=== PATIENT | female | born 1955 | race Caucasian/White ===

== ENCOUNTER 2021-04-12 09:31 | Inpatient (IN) | payer OTHER ==
[~2021-04-12] VITALS: Ht 162.6 cm; Wt 131.0 kg
--- NOTE | ~2021-04-12 | EMS ---
[address] [address] EMS Patient Care Report Name: FARRAH SUAREZ Room #: 202-P ADM IN M.R.#: [id number] Admission: 04/12/21 Attend Phys: Taqueria Elizabeth MD Discharge: Date of : 59 Report #: [id number] THIS REPORT FOR: //name// Report Transmitted: 04/16/2021 13:06 EMS Care Summary [place], [place]/[facility] Incident [id number] @ 04/12/2021 08:46 Incident Location [address] [place] [address] Patient FARRAH SUAREZ Female, 65 Years 1955 Patient Address [address] [place] [address] Patient History Cardiac Arrythmia,Diabetes, Patient Allergies Penicillin allergy, Patient Medications Losartan, Diltiazem, Amiodarone, Chief Complaint WEAKNESS Disposition Transported No Lights/[place] Dispatch Reason Sick Person Transported To [facility] Narrative PT FOUND SITTING ON TOILET IN BATHROOM OF HER HOME. P28 ON SCENE. PTS ON SCENE STATES THAT FOR 3 DAYS PT HAS HAD FEVER, WEAKNESS, INTERMITTENT CONFUSION AND TROUBLE BREATHING. PTS STATES THAT PT TYPICALLY DOES NOT HAVE ANY OF THESE COMPLAINTS. ON EMS ARRIVAL PT STATES THAT SHE MADE IT TO THE [address] [address] EMS Patient Care Report Name: FARRAH SUAREZ Room #: 202-P ADM IN M.Fátima.#: [id number] Admission: 04/12/21 Attend Phys: Taqueria Elizabeth MD Discharge: Date of : 59 Report #: [id number] BATHROOM BUT CANNOT GET UP OFF THE TOILET ON HER OWN. PT ASSISTED FROM TOILET TO MEGAMOVER AND CARRIED TO STRETCHER. PT IS LETHARGIC BUT ABLE TO ANSWER ALL QUESTIONS APPROPRIATELY. PT HAS NO VISIBLE TRAUMA. PT HAS NO COMPLAINTS OF PAIN, SOB, CP OR TRAUMA. NO ADDITIONAL CHANGES NOTED ENROUTE. Initial Vitals @09:13Glucose: 383, @09:08CO: 0,SpO2: 84, @09:14P: 89,R: 18,BP: 106/58,Pain: 0/10,GCS: 15,CO: 7,SpO2: 92,Revised Trauma: 12, @09:08P: 91,R: 18,BP: 114/84,Pain: 0/10,GCS: 15,SpO2: 84,Revised Trauma: 12, Assessments @08:53MENTAL:No Abnormalities,SKIN:Hot,Diaphoresis,HEENT:Head/Face: No Abnormalities,LUNG SOUNDS:General: No Abnormalities,ABDOMEN:General: No Abnormalities,PELVIS//GI:Incontinence,EXTREMITIES:PULSE:NEURO:No Abnormalities, Impression Generalized Weakness Procedures @08:53 ALS Assessment Response: UnchangedSucceeded @09:07 3-Lead ECG Response: UnchangedSucceeded @09:05 Stretcher Response: Unchanged @09:04 General Comments Response: Unchanged @09:09 IV Therapy - Saline Lock 0cc (20 ga) Site: Hand-Left Response: UnchangedFailed @09:12 IV Therapy - Saline Lock 0cc (20 ga) Site: Hand-Left Response: UnchangedSucceeded Timeline 08:42,Call Received 08:42,Dispatch Notified 08:46,Dispatched 08:48,En Route 08:51,On Scene 08:53,At Patient 08:53,ALS Assessment,Response: UnchangedSucceeded, 09:04,General Comments,Response: Unchanged 09:05,Stretcher,Response: Unchanged 09:07,3-Lead ECG,Response: UnchangedSucceeded, 09:08,BP: 114/84 M,PULSE: 91,RR: 18 R,SPO2: 84 Ox,ETCO2: ,BG: ,PAIN: 0,GCS: 15, 09:08,BP: / M,PULSE: ,RR: R,SPO2: 84 Ox,ETCO2: ,BG: ,PAIN: ,GCS: , 09:09,IV Therapy - Saline Lock 0cc 20 ga Site: Hand-Left,Response: [address] [address] EMS Patient Care Report Name: FARRAH SUAREZ Room #: 202-P [facility] IN M.R.#: [id number] Admission: 04/12/21 Attend Phys: Taqueria Elizabeth MD Discharge: Date of : 59 Report #: [id number] UnchangedFailed, 09:12,IV Therapy - Saline Lock 0cc 20 ga Site: Hand-Left,Response: UnchangedSucceeded, 09:13,BP: / M,PULSE: ,RR: R,SPO2: Ox,ETCO2: ,B,PAIN: ,GCS: , 09:14,BP: 106/58 M,PULSE: 89,RR: 18 R,SPO2: 92 Ox,ETCO2: ,BG: ,PAIN: 0,GCS: 15, 09:19,Depart Scene 09:27,At Destination 09:38,Call Closed Disclaimer v1.1 Copyright 2021 [employer] This EMS Care Summary contains data elements from the applicable legal record (which may be displayed differently). It is designed to provide pertinent information for the following purposes: continuity of care, clinical quality, and state data reporting. The complete legal record is available to ED staff and administrators of the receiving hospital in [facility] Patient Tracker. All data is provided "as is."
[2021-04-12 09:32] VITALS: BP 95/21
[2021-04-12 09:57] LABS: HEMOGLOBIN 10.7 gm/dL (12.0-15.0); LYMPHOCYTES 1.5 % (24.0-44.0); WBC 10.5 thou/uL (4.0-11.0)
[2021-04-12 09:58] LABS: ABSOLUTE NEUTROPHILS 9.9 thou/uL (1.4-8.2); BASOPHILS 0.2 % (0.0-2.0); EOSINOPHILS 0.1 % (0.0-3.0); HEMATOCRIT 32.4 % (37.0-47.0); MCH 27.6 pg (26.0-34.0); MCV 83.5 fL (80.0-100.0); MONOCYTES 3.6 % (1.0-8.0); PLATELET COUNT 137 thou/uL (150-400); POLYS 94.6 % (36.0-66.0); RBC 3.88 mil/uL (4.20-5.00); RDW 18.9 % (10.5-14.5)
[2021-04-12 09:59] LABS: CALCIUM 9.1 mg/dL (8.5-10.1); CREATININE 1.7 mg/dL (0.6-1.0)
[2021-04-12 10:00] LABS: POTASSIUM 4.9 mmol/L (3.5-5.1)
[2021-04-12 10:09] LABS: ALBUMIN 2.8 g/dL (3.4-5.0); TOTAL BILIRUBIN 1.1 mg/dL (0.2-1.0); TOTAL PROTEIN 7.3 g/dL (6.4-8.2)
[2021-04-12] MEDS ORDERED: LOSARTAN POTASS50 MG PO (10:35)
[2021-04-12] MEDS ORDERED: FUROSEMIDE 80 M80 M1 PO (10:35)
[2021-04-12] MEDS ORDERED: PACERONE 200 M200 M1 PO (10:35)
[2021-04-12] MEDS ORDERED: XARELTO20 MG PO (10:35)
[2021-04-12] MEDS ORDERED: GLYBURIDE 2.52.5 M1 PO (10:36)
[2021-04-12] MEDS ORDERED: DILTIAZEM 24HR240 M1 PO (10:36)
[2021-04-12] MEDS ORDERED: METFORMIN HCL1000 MG PO (10:36)
[2021-04-12 12:15] VITALS: BP 127/65
[2021-04-12 13:22] LABS: URINE BILIRUBIN NEGATIVE (Negative); URINE BLOOD NEGATIVE (Negative); URINE CLARITY CLEAR; URINE COLOR YELLOW; URINE GLUCOSE-RANDOM* NEGATIVE (Negative); URINE KETONES NEGATIVE (Negative); URINE LEUKOCYTES-REFLEX TRACE (Negative); URINE NITRITE-REFLEX NEGATIVE (Negative); URINE PROTEIN (DIPSTICK) 1+ (Negative); URINE SPECIFIC GRAVITY 1.025 (1.005-1.035); URINE UROBILINOGEN 0.2 E.U./dl (0.2-1.0)
[2021-04-12 13:32] LABS: SQUAMOUS >10 Many /LPF (0-3); URINE RBC 3-10 Few /HPF (NONE SEEN)
[2021-04-12 13:33] LABS: BACTERIA-REFLEX >30 Many /HPF (None Seen); URINE WBC-REFLEX 6-15 Few /HPF (0-5)
[2021-04-12 13:34] LABS: AMORPHOUS URATES Many /LPF (None Seen); FINE GRANULAR CASTS 0-3 Few /LPF (None Seen); HYALINE CASTS 0-3 Few /LPF (None Seen)
[2021-04-12 13:47] LABS: ANISOCYTOSIS 1+; PLATELET ESTIMATE NORMAL
--- NOTE | 2021-04-12 14:27 | EKG ---
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
[2021-04-12 16:00] VITALS: BP 116/53
[2021-04-12 20:56] VITALS: BP 99/64
[2021-04-13] VITALS (8 sets, daily range): BP systolic 105–119; BP diastolic 57–67
[2021-04-13 04:16] LABS: ABSOLUTE NEUTROPHILS 7.6 thou/uL (1.4-8.2); BASOPHILS 0.3 % (0.0-2.0); HEMATOCRIT 31.2 % (37.0-47.0); HEMOGLOBIN 10.4 gm/dL (12.0-15.0); MCH 27.6 pg (26.0-34.0); MCHC 33.2 g/dL (28.0-37.0); MCV 83.3 fL (80.0-100.0); MONOCYTES 10.1 % (1.0-8.0); PLATELET COUNT 99 thou/uL (150-400); POLYS 84.6 % (36.0-66.0); RBC 3.75 mil/uL (4.20-5.00); RDW 18.8 % (10.5-14.5)
[2021-04-13 05:05] LABS: ALBUMIN 2.6 g/dL (3.4-5.0); CALCIUM 8.7 mg/dL (8.5-10.1); CREATININE 1.9 mg/dL (0.6-1.0); MAGNESIUM 2.2 mg/dL (1.8-2.4); POTASSIUM 4.6 mmol/L (3.5-5.1); TOTAL BILIRUBIN 1.3 mg/dL (0.2-1.0); TOTAL PROTEIN 7.2 g/dL (6.4-8.2)
[2021-04-13 10:23] LABS: HCO3 22.1 mmol/L (22.0-26.0); PCO2 35.5 mmHg (35.0-45.0); PO2 81.4 mmHg (80.0-100.0); pH 7.413 (7.360-7.450); sO2 96.2 % (92.0-98.0)
--- NOTE | 2021-04-13 12:43 | 2DMMODE ---
[facility] [place] [address] 2 D/M-MODE ECHOCARDIOGRAM Name: FARRAH SUAREZ Room #: 202-P ADM IN M.R.#: [id number] Admission: 04/12/21 Attend Phys: Taqueria Elizabeth MD Discharge: Date of : 59 Report #: [id number] THIS REPORT FOR: cc: Bharat Burton MD, Neal A. MD Santiago, Patrick MD [facility] ~ APPROVED REPORT Study performed: 04/13/2021 11:00:27 EXAM: Comprehensive 2D, Doppler, and color-flow Echocardiogram Patient Location: In-Patient Room #: 202 Status: routine BSA: 2.25 HR: 85 bpm BP: 119/63 mmHg Rhythm: NSR Other Information Study Quality: Adequate Technically limited study due to body habitus, inability to position patient. Risk Factors: Cardiac Risk Factors: HTN Indications Congestive Heart Failure Diabetes Dyspnea Hypertension/HDD 2D Dimensions IVSd: 16.85 (7-11mm) LVOT Diam: 20.80 (18-24mm) LVDd: 52.73 mm PWd: 12.21 (7-11mm) Ascending Ao: 31.49 (22-36mm) LVDs: 40.08 (25-40mm) Left Atrium: 43.35 (27-40mm) Aortic Root: 25.94 mm Volumes Left Atrial Volume (Systole) Single Plane 4CH: 92.77 mL Single Plane 2CH: 82.66 mL [facility] [address] [place] [address] 2 D/M-MODE ECHOCARDIOGRAM Name: FARRAH SUAREZ Room #: 202-P ADM IN M.R.#: [id number] Admission: 04/12/21 Attend Phys: Taqueria Elizabeth MD Discharge: Date of : 59 Report #: [id number] Biplane LA Volume: 78.00 mL LA ESV Index: 35.00 mL/m2 Aortic Valve AoV Peak Octavio.: 3.17 m/s AO Peak Gr.: 40.17 mmHg LVOT Max P.80 mmHg AO Mean Gr.: 28.50 mmHg LVOT Mean P.13 mmHg AO V2 Mean: 2.58 m/s LVOT Max V: 1.48 m/s AO V2 VTI: 67.90 cm LVOT Mean V: 1.05 m/s TONE (VTI): 1.87 cm2 LVOT V1 VTI: 37.41 cm TONE Vmax: 1.59 cm2 AI Vmax: 3.73 m/s SV (LVOT): 127.09 mL AI Stearns: 2.81 m/s2 AI PHT: 385.58 ms Mitral Valve MV Peak Gr.: 14.98 mmHg MV Mean Gr.: 7.79 mmHg MV Max Octavio.: 1.93 m/s MV Mean Octavio.: 1.32 m/s MV VTI: 541.37 mm MVA VTI: 234.76 mm2 Pulmonary Valve PV Peak Octavio.: 1.35 m/s PV Peak Gr.: 7.24 mmHg AK End Vmax: 1.43 m/s Tricuspid Valve TR Peak Octavio.: 3.73 m/s RAP Estimate: 7.00 mmHg TR Peak Gr.: 55.55 mmHg RVSP: 62.00 mmHg Left Ventricle The left ventricle is normal size. There is normal LV segmental wall motion. Moderate concentric left ventricular hypertrophy. Left ventricular systolic function is borderline. LVEF is 50-55%. Transmitral Doppler flow pattern suggests impaired LV relaxation. Right Ventricle The right ventricle is normal size. The right ventricular systolic function is normal. Atria Left atrium is dilated. A pacemaker is seen in the right atrium consistent with history. Aortic Valve [facility] [address] [place] [address] 2 D/M-MODE ECHOCARDIOGRAM Name: FARRAH SUAREZ Room #: 202-P [facility] IN .R.#: [id number] Admission: 04/12/21 Attend Phys: Taqueria Elizabeth MD Discharge: Date of : 59 Report #: [id number] The aortic valve is normal in structure. Mild aortic regurgitation. Mild aortic stenosis. Highest mean aortic valve gradient is _28.5___mmHg. Calculated TONE by the continuity equation is _1.6___cm2. Mitral Valve Mitral valve leaflets are severely thickened. There is no mitral valve regurgitation noted. No evidence of mitral valve stenosis. Tricuspid Valve The tricuspid valve is normal in structure. Severe tricuspid regurgitation. PAP 62 mmHg Pulmonic Valve The pulmonary valve is normal in structure. There is no pulmonic valvular regurgitation. Great Vessels The aortic root is normal in size. IVC is normal in size and collapses >50% with inspiration. Pericardium There is no pericardial effusion. <Conclusion> Normal left ventricle size with moderate concentric hypertrophy Ejection fraction 50-55% Normal right ventricle size/function Pacer wire detected in the right ventricle Moderate left atrial enlargement Mild aortic valve calcification Mild aortic valve stenosis aortic valve area estimated 1.6 cm Aortic valve mean gradient of 28 mmHg Moderate mitral annular calcification, posterior leaflet appears to be fixed Moderately thickened mitral valve without stenosis Moderate to severe tricuspid valve insufficiency Pulmonary systolic pressure estimated at 62 mmHg No pericardial effusion normal <ELECTRONICALLY SIGNED> By: Brock Levi MD, FACC 04/13/21 1243 1243 1243 Brock Levi MD, FACC /INF
--- NOTE | 2021-04-13 17:35 | HC ---
[facility] [place] [address] CONSULTATION Name: FARRAH SUAREZ Room #: 202-P ADM IN M.R.#: [id number] Admission: 04/12/21 Attend Phys: Taqueria Elizabeth MD Discharge: Date of : 59 Report #: [id number] THIS REPORT FOR: cc: Bharat Burton MD, Neal A. MD Geha,Agusto Cabrera MD ~ DATE OF SERVICE: 04/12/2021 INFECTIOUS DISEASE CONSULTATION REASON FOR CONSULTATION: I was asked to evaluate concerning sepsis and bacteremia. HISTORY OF PRESENT ILLNESS: The patient is a 65-year-old with underlying history of diabetes, hypertension, congestive heart failure, presents with a 3-day history of progressive weakness, nonproductive cough, shortness of breath, fever up to 102 degrees. Nausea with minimal emesis. No abdominal pain or diarrhea. Denies any dysuria, back or flank pain. She has been COVID vaccinated. No influenza vaccine. Recently moved from [place]. She does have a history of congestive heart failure, sick sinus syndrome, permanent pacemaker and obstructive sleep apnea. REVIEW OF SYSTEMS: A 14-point review of system was negative other than what has been described above. The patient, in the Emergency Room, was given IV fluids. Also, given Lasix when she was found to be in congestive heart failure. She is on 5 liters of oxygen per nasal cannula. ALLERGIES: PENICILLIN, TETRACYCLINE. MEDICATIONS: As noted on her MAY, now on vancomycin, azithromycin and meropenem. She was also given levofloxacin. PAST MEDICAL HISTORY: Hypertension, diabetes, obstructive sleep apnea, iron deficiency anemia, paroxysmal atrial fibrillation, sick sinus syndrome, mitral valve dysfunction, diastolic congestive heart failure, permanent pacemaker, obesity. FAMILY HISTORY: No report of tuberculosis. SOCIAL HISTORY: Nonsmoker. No significant alcohol intake. PHYSICAL EXAMINATION: VITAL SIGNS: She was afebrile. Blood pressure 99/64, heart rate 90, respiratory rate 21 on 5 liters of oxygen per nasal cannula. GENERAL: Obese. She was very weak, lethargic, had a difficult time speaking and then would drift off to sleep. [facility] [address] [place] [address] CONSULTATION Name: FARRAH SUAREZ Room #: 202-P [facility] IN M.R.#: [id number] Admission: 04/12/21 Attend Phys: Taqueria Elizabeth MD Discharge: Date of : 59 Report #: [id number] SKIN: With intertrigo of the groin. No other lesions or decubiti. No palpable adenopathy. HEENT: Eyes without scleral icterus. Mouth without mucositis. NECK: Supple. LUNGS: Coarse breath sounds posteriorly with crackles in the bases. HEART: Regular, without appreciable murmur, gallop or rub. ABDOMEN: Soft and nontender with no hepatosplenomegaly or mass appreciated. Large abdominal pannus. EXTREMITIES: Without clubbing, cyanosis or edema. She had mild venous stasis changes to both pretibial skin. MOOD: She was lethargic. NEUROLOGIC: Cranial nerves intact. Strength in upper and lower extremities was symmetric and within normal limits, although she was generalized weak. LABORATORY DATA: Reviewed. MICROBIOLOGY: Reviewed. IMAGING: Chest x-ray reviewed. IMPRESSION: A 65-year-old presents with sepsis and streptococcal bacteremia. Source of her bacteremia is not clear if related to pneumonia, urinary tract or intra-abdominal source. So far, no evidence of skin or soft tissue infection. She has congestive heart failure with respiratory failure, oxygen requirement is now at 5 liters. She has metabolic acidosis and diabetes, yet poorly controlled, underlying hypertension, obesity, obstructive sleep apnea, paroxysmal atrial fibrillation, and permanent pacemaker. Recommend continuing care of the Critical Care Unit. We will repeat her blood cultures. Check echocardiogram. Continue broad antibiotic coverage while awaiting blood and urine cultures. We will obtain sputum culture if possible. Check serial laboratory studies and if no improvement, we will image CT scan abdomen and pelvis if no source of her bacteremia is yet identified. I have discussed the case with nursing staff at the bedside. The patient remains in serious condition. <ELECTRONICALLY SIGNED> By: Agusto Lay MD 04/13/21 1735 2106 21 Agusto Lay MD /nt
[2021-04-14 04:45] VITALS: BP 111/60
[2021-04-14 08:10] VITALS: BP 91/57
[2021-04-14 10:36] LABS: HEMATOCRIT 34.4 % (37.0-47.0); MCV 84.3 fL (80.0-100.0); RBC 4.09 mil/uL (4.20-5.00); RDW 19.2 % (10.5-14.5); WBC 12.7 thou/uL (4.0-11.0)
[2021-04-14 10:53] LABS: CALCIUM 8.6 mg/dL (8.5-10.1); CREATININE 1.5 mg/dL (0.6-1.0); POTASSIUM 4.6 mmol/L (3.5-5.1)
[2021-04-14 11:30] VITALS: BP 94/66
[2021-04-14 11:44] LABS: BE(vivo) -4.7 mmol/L (-2 to +3); HCO3 20.5 mmol/L (22.0-26.0); PCO2 38.3 mmHg (35.0-45.0); PO2 97.3 mmHg (80.0-100.0); pH 7.346 (7.360-7.450); sO2 97.1 % (92.0-98.0)
[2021-04-14 15:05] VITALS: BP 106/63
[2021-04-14 19:15] VITALS: BP 132/70
[2021-04-15 03:15] VITALS: BP 111/63
[2021-04-15 05:26] LABS: HEMATOCRIT 35.4 % (37.0-47.0); HEMOGLOBIN 11.6 gm/dL (12.0-15.0); MCH 27.4 pg (26.0-34.0); MCHC 32.8 g/dL (28.0-37.0); MCV 83.6 fL (80.0-100.0); RBC 4.24 mil/uL (4.20-5.00); RDW 18.9 % (10.5-14.5); WBC 13.1 thou/uL (4.0-11.0)
[2021-04-15 06:06] LABS: CALCIUM 8.5 mg/dL (8.5-10.1); CREATININE 1.8 mg/dL (0.6-1.0); POTASSIUM 4.9 mmol/L (3.5-5.1)
[2021-04-15 08:57] VITALS: BP 114/60
[2021-04-15 12:18] VITALS: BP 108/61
[2021-04-15 16:03] VITALS: BP 96/68
[2021-04-15 20:11] VITALS: BP 99/66
[2021-04-16 03:00] VITALS: BP 111/69
[2021-04-16 04:44] LABS: ALBUMIN 3.3 g/dL (3.4-5.0); CALCIUM 8.9 mg/dL (8.5-10.1); CREATININE 2.4 mg/dL (0.6-1.0); PHOSPHORUS 6.3 mg/dL (2.6-4.7)
[2021-04-16 07:05] VITALS: BP 119/80
[2021-04-16 11:12] VITALS: BP 117/66
[2021-04-16 16:22] VITALS: BP 102/63
[2021-04-16 20:11] VITALS: BP 129/66
[2021-04-17 03:19] LABS: ALBUMIN 3.1 g/dL (3.4-5.0); CREATININE 2.1 mg/dL (0.6-1.0); PHOSPHORUS 5.4 mg/dL (2.5-4.9); POTASSIUM 4.2 mmol/L (3.5-5.1)
[2021-04-17 04:45] VITALS: BP 119/64
[2021-04-17 07:30] VITALS: BP 108/64
[2021-04-17 11:30] VITALS: BP 137/71
[2021-04-17 16:00] VITALS: BP 141/60
[2021-04-17 19:15] VITALS: BP 104/56
[2021-04-18 04:22] VITALS: BP 96/76
[2021-04-18 06:23] LABS: ALBUMIN 2.9 g/dL (3.4-5.0); CALCIUM 8.2 mg/dL (8.5-10.1); CREATININE 2.3 mg/dL (0.6-1.0); PHOSPHORUS 4.7 mg/dL (2.5-4.9); POTASSIUM 4.1 mmol/L (3.5-5.1)
[2021-04-18 08:14] VITALS: BP 107/66
[2021-04-18 11:32] VITALS: BP 110/67
[2021-04-18 15:33] VITALS: BP 118/77
[2021-04-18 20:04] VITALS: BP 116/77
[2021-04-19 03:07] VITALS: BP 109/65
[2021-04-19 05:17] LABS: HEMATOCRIT 36.1 % (37.0-47.0); HEMOGLOBIN 11.6 gm/dL (12.0-15.0); MCH 27.3 pg (26.0-34.0); MCHC 32.1 g/dL (28.0-37.0); MCV 84.9 fL (80.0-100.0); RBC 4.24 mil/uL (4.20-5.00); RDW 19.7 % (10.5-14.5); WBC 17.8 thou/uL (4.0-11.0)
[2021-04-19 05:34] LABS: ALBUMIN 2.7 g/dL (3.4-5.0); CALCIUM 8.1 mg/dL (8.5-10.1); CREATININE 2.4 mg/dL (0.6-1.0); PHOSPHORUS 5.9 mg/dL (2.5-4.9); POTASSIUM 4.1 mmol/L (3.5-5.1)
[2021-04-19 07:00] VITALS: BP 95/55
[2021-04-19 09:08] LABS: HEP B SURFACE Ab(ANTI-HBS Non Reactive (()); HEPATITIS B SURFACE AG Negative (Negative)
[2021-04-19 11:00] VITALS: BP 93/60
[2021-04-19 16:00] VITALS: BP 99/61
[2021-04-19 19:52] VITALS: BP 102/63
[2021-04-20 02:39] VITALS: BP 101/67
[2021-04-20 07:14] LABS: HEMATOCRIT 35.9 % (37.0-47.0); HEMOGLOBIN 11.6 gm/dL (12.0-15.0); MCH 27.1 pg (26.0-34.0); MCHC 32.3 g/dL (28.0-37.0); MCV 83.9 fL (80.0-100.0); PLATELET COUNT 183 thou/uL (150-400); RBC 4.28 mil/uL (4.20-5.00); RDW 19.3 % (10.5-14.5); WBC 17.8 thou/uL (4.0-11.0)
[2021-04-20 07:20] VITALS: BP 110/64
[2021-04-20 07:29] LABS: ALBUMIN 2.7 g/dL (3.4-5.0); CALCIUM 8.5 mg/dL (8.5-10.1); PHOSPHORUS 6.5 mg/dL (2.6-4.7); POTASSIUM 4.6 mmol/L (3.5-5.1); TOTAL BILIRUBIN 1.8 mg/dL (0.2-1.0); TOTAL PROTEIN 7.2 g/dL (6.4-8.2)
[2021-04-20 07:30] LABS: CREATININE 3.8 mg/dL (0.6-1.0)
[2021-04-20 07:51] LABS: ABSOLUTE NEUTROPHILS 14.1 thou/uL (1.4-8.2); ANISOCYTOSIS 2+; NUCLEATED RBCS 1 /100WBC; POIKILOCYTOSIS 1+; POLYCHROMASIA 2+
[2021-04-20 11:15] VITALS: BP 92/64
[2021-04-20 15:50] VITALS: BP 82/56
[2021-04-20 19:13] VITALS: BP 106/65
[2021-04-21 01:25] LABS: ALBUMIN 2.7 g/dL (3.4-5.0); CALCIUM 8.1 mg/dL (8.5-10.1); CREATININE 3.6 mg/dL (0.6-1.0); PHOSPHORUS 5.5 mg/dL (2.6-4.7); POTASSIUM 4.3 mmol/L (3.5-5.1)
[2021-04-21 03:46] VITALS: BP 103/62
[2021-04-21 07:25] VITALS: BP 86/55; BP 91/47
[2021-04-21 11:10] VITALS: BP 90/48
[2021-04-21 12:34] LABS: BE(vivo) -3.3 mmol/L (-2 to +3); HCO3 20.6 mmol/L (22.0-26.0); PCO2 33.5 mmHg (35.0-45.0); pH 7.407 (7.360-7.450); sO2 93.1 % (92.0-98.0)
[2021-04-21 15:10] VITALS: BP 85/52
[2021-04-21 19:08] VITALS: BP 82/57
[2021-04-22] VITALS (7 sets, daily range): BP systolic 78–107; BP diastolic 28–67
[2021-04-22 02:12] LABS: ABSOLUTE NEUTROPHILS 16.8 thou/uL (1.4-8.2); BASOPHILS 0.3 % (0.0-2.0); EOSINOPHILS 0.4 % (0.0-3.0); HEMATOCRIT 35.6 % (37.0-47.0); HEMOGLOBIN 11.5 gm/dL (12.0-15.0); LYMPHOCYTES 5.2 % (24.0-44.0); MCH 27.5 pg (26.0-34.0); MCHC 32.2 g/dL (28.0-37.0); MCV 85.4 fL (80.0-100.0); MONOCYTES 8.5 % (1.0-8.0); PLATELET COUNT 137 thou/uL (150-400); POLYS 85.6 % (36.0-66.0); RBC 4.17 mil/uL (4.20-5.00); RDW 19.5 % (10.5-14.5); WBC 19.7 thou/uL (4.0-11.0)
[2021-04-22 02:45] LABS: ALBUMIN 2.6 g/dL (3.4-5.0); CALCIUM 8.5 mg/dL (8.5-10.1); CREATININE 4.5 mg/dL (0.6-1.0); MAGNESIUM 2.8 mg/dL (1.8-2.4); PHOSPHORUS 6.8 mg/dL (2.6-4.7); POTASSIUM 4.3 mmol/L (3.5-5.1); TOTAL BILIRUBIN 1.5 mg/dL (0.2-1.0); TOTAL PROTEIN 7.3 g/dL (6.4-8.2)
[2021-04-23] VITALS (7 sets, daily range): BP systolic 81–102; BP diastolic 46–65
[2021-04-23 05:22] LABS: ALBUMIN 2.4 g/dL (3.4-5.0); CALCIUM 8.2 mg/dL (8.5-10.1); PHOSPHORUS 8.3 mg/dL (2.5-4.9)
[2021-04-23 05:27] LABS: CREATININE 5.6 mg/dL (0.6-1.0)
[2021-04-23 07:54] LABS: HEMATOCRIT 36.3 % (37.0-47.0); HEMOGLOBIN 11.6 gm/dL (12.0-15.0); MCH 27.7 pg (26.0-34.0); MCHC 31.9 g/dL (28.0-37.0); MCV 86.8 fL (80.0-100.0); PLATELET COUNT 114 thou/uL (150-400); RBC 4.19 mil/uL (4.20-5.00); RDW 19.8 % (10.5-14.5); WBC 19.4 thou/uL (4.0-11.0)
[2021-04-23 08:13] LABS: MAGNESIUM 3.2 mg/dL (1.8-2.4); TOTAL BILIRUBIN 1.4 mg/dL (0.2-1.0); TOTAL PROTEIN 7.2 g/dL (6.4-8.2)
[2021-04-23 09:31] LABS: ABSOLUTE NEUTROPHILS 16.9 thou/uL (1.4-8.2)
[2021-04-23 09:32] LABS: ANISOCYTOSIS 2+
[2021-04-24 04:11] VITALS: BP 95/58
[2021-04-24 05:51] LABS: ALBUMIN 2.4 g/dL (3.4-5.0); CALCIUM 8.3 mg/dL (8.5-10.1); CREATININE 4.7 mg/dL (0.6-1.0); PHOSPHORUS 7.4 mg/dL (2.6-4.7); POTASSIUM 4.6 mmol/L (3.5-5.1)
[2021-04-24 07:20] VITALS: BP 91/60
[2021-04-24 08:00] VITALS: BP 95/58
--- NOTE | 2021-04-24 10:11 | HC ---
[facility] [place] [address] CONSULTATION Name: FARRAH SUAREZ Room #: 202-P ADM IN M.R.#: [id number] Admission: 04/12/21 Attend Phys: Taqueria Elizabeth MD Discharge: Date of : 59 Report #: [id number] THIS REPORT FOR: cc: Bharat Burton MD, Neal A. MD Khosla, Parveen K. MD ~ DATE OF SERVICE: 04/21/2021 HISTORY OF PRESENT ILLNESS: A 65-year-old female patient who is not able to provide any history. This patient is very sleepy. She wakes up some. She stays awake for a few seconds and then, she falls back to sleep. That makes it very difficult to evaluate the patient. There is a person with her who indicates that she was her college roommate. The patient also has a significant other who was not there. The college roommate indicates that she has been poorly responsive. The history I got from the record that she was feeling weak and drained out before she came to the hospital. At that time, she was noticed to have multiple problems. Her oxygen saturation was low. She has a history of congestive heart failure. She has a prior history of pacemaker. It is not certain if that pacemaker is compatible with MRI or not. She has a history of sleep apnea. She has a history of diabetes and hypertension. She is diffusely weak. She is morbidly obese. From the records, it looks like she has had lactic acidosis when she came in. She has an uncontrolled diabetes. She has renal failure. At one time, she was pretty significantly hypotensive. She has a history of AFib and has anticoagulation with Xarelto. She has a history of sleep apnea. This is her relevant 14-point review of systems. PAST MEDICAL HISTORY: Positive for numerous problems. Looks like she has renal failure now and I reviewed the notes and it looks like she also has pulmonary hypertension. Past medical history is positive for numerous things including diabetes. FAMILY HISTORY: She recently moves from [place]. She does not have any established doctor here yet. PHYSICAL EXAMINATION: Her examination was attempted. On multiple stimulations, she will open her eyes for a few seconds. She will very rarely follow any commands. I cannot tell about speech or cognition because of that. Cranial nerve examination was attempted, but she could not stay long enough to do any worthwhile examination. After repeatedly asking her to move her neck, it looks like she did, but she flopped it right back. It is very difficult to tell. It is not possible to do the sensory examination. She does not have any reflexes. Not possible to do the cerebellar sign because she does not stay awake. It is not possible to do any fundus examination. She does not have any papilledema. She is morbidly obese. Looks like she can hear and see. There does not appear to be prominent edema. I cannot tell about the pulses. Blood pressure is 90/48. Respiration is 19. Pulse is 69. Temperature is 97.6. Her blood pressure [address] [address] CONSULTATION Name: FARRAH SUAREZ Room #: 202-P [facility] IN M.R.#: [id number] Admission: 04/12/21 Attend Phys: Taqueria Elizabeth MD Discharge: Date of : 59 Report #: [id number] is running very low. Last one was 90/48. Temperature is 97.6. Respiration is 19. Bedside pulse oximetry is 93. LABORATORY DATA: Indicates she has an increased white count. Sodium is 130. GFR is only 13. Blood sugar is uncontrolled. IMPRESSION AND PLAN: This patient most likely has a severe encephalopathy. She also has multisystem problems. Evaluation is difficult. She is very unstable to get any testing done at the moment. She needs an MRI if we need to evaluate her further, but we do not know if the pacemaker is compatible with MRI or not and even if it is, it will take several days to set it up with a underwriting sales representative coming from there. I was going to do the CT scan of the spine to make sure there is no problem in the spine because of systemic infection. Infection can localize to the spine and it is difficult to tell in this patient. However, this patient is too unstable to go any place in my view. Therefore, I canceled that for the time being and if the patient stabilizes, I will suggest checking a CT scan of the cervical and thoracic spine to make sure there is no infection there. With this kind of condition, I do not even know how good a surgical candidate she will be even if we find an infection there, but the main thing we can decompensate her during the transportation. I read some notes about talking to the family about how aggressive they want to be and I think that is pretty desirable. The patient was discussed with Dr. Lazcano before seeing the patient and I will try to discuss with her also after I finish the dictation. More than 50 minutes of time was spent taking care of this patient today and majority was spent reviewing the patient's data in the computer as well as imaging study of the brain. I will review the imaging study of her abdominal and pelvic CT to see how far they were able to look at in that spine. <ELECTRONICALLY SIGNED> By: Jd Kelly MD 04/24/21 1011 1258 25 Jd Kelly MD /lucille
[2021-04-24 11:30] VITALS: BP 94/65
[2021-04-24 15:00] VITALS: BP 80/62
[2021-04-24 19:34] VITALS: BP 93/62
[2021-04-25] VITALS (7 sets, daily range): BP systolic 85–93; BP diastolic 44–62
[2021-04-25 05:30] LABS: ALBUMIN 2.4 g/dL (3.4-5.0); CALCIUM 8.3 mg/dL (8.5-10.1); PHOSPHORUS 8.2 mg/dL (2.6-4.7); POTASSIUM 4.8 mmol/L (3.5-5.1)
[2021-04-25 05:32] LABS: CREATININE 5.7 mg/dL (0.6-1.0)
[2021-04-26 04:02] VITALS: BP 91/60
[2021-04-26 05:27] LABS: BASOPHILS 0.7 % (0.0-2.0); EOSINOPHILS 0.6 % (0.0-3.0); HEMATOCRIT 36.2 % (37.0-47.0); HEMOGLOBIN 11.5 gm/dL (12.0-15.0); LYMPHOCYTES 6.1 % (24.0-44.0); MCH 27.9 pg (26.0-34.0); MCHC 31.9 g/dL (28.0-37.0); MCV 87.6 fL (80.0-100.0); MONOCYTES 10.4 % (1.0-8.0); PLATELET COUNT 149 thou/uL (150-400); POLYS 82.2 % (36.0-66.0); RBC 4.13 mil/uL (4.20-5.00); RDW 22.1 % (10.5-14.5); WBC 14.7 thou/uL (4.0-11.0)
[2021-04-26 05:30] LABS: ALBUMIN 2.4 g/dL (3.4-5.0); CALCIUM 8.3 mg/dL (8.5-10.1); CREATININE 4.8 mg/dL (0.6-1.0); PHOSPHORUS 7.2 mg/dL (2.6-4.7); POTASSIUM 4.7 mmol/L (3.5-5.1)
[2021-04-26 09:03] VITALS: BP 87/57
[2021-04-26 12:33] VITALS: BP 83/70
[2021-04-26 17:52] VITALS: BP 92/60
[2021-04-26 20:45] VITALS: BP 88/54; BP 94/37
[2021-04-26 23:52] VITALS: BP 86/57
[2021-04-27] VITALS (7 sets, daily range): BP systolic 88–101; BP diastolic 43–65
[2021-04-27 06:08] LABS: ABSOLUTE NEUTROPHILS 9.8 thou/uL (1.4-8.2); EOSINOPHILS 0.7 % (0.0-3.0); HEMATOCRIT 34.4 % (37.0-47.0); LYMPHOCYTES 7.3 % (24.0-44.0); MCH 28.2 pg (26.0-34.0); MCV 88.1 fL (80.0-100.0); MONOCYTES 11.5 % (1.0-8.0); PLATELET COUNT 144 thou/uL (150-400); POLYS 79.5 % (36.0-66.0); RBC 3.91 mil/uL (4.20-5.00); RDW 23.1 % (10.5-14.5); WBC 12.3 thou/uL (4.0-11.0)
[2021-04-27 09:30] LABS: ANISOCYTOSIS 3+; POIKILOCYTOSIS 1+; POLYCHROMASIA 2+
[2021-04-28 03:09] VITALS: BP 119/18
[2021-04-28 07:00] VITALS: BP 102/57
[2021-04-28 11:00] VITALS: BP 86/43
[2021-04-28 16:30] VITALS: BP 94/55
[2021-04-28 19:05] LABS: BE(vivo) -6.4 mmol/L (-2 to +3); HCO3 21.3 mmol/L (22.0-26.0); PCO2 51.1 mmHg (35.0-45.0); PO2 75.1 mmHg (80.0-100.0); sO2 92.5 % (92.0-98.0)
[2021-04-28 19:06] LABS: pH 7.238 (7.360-7.450)
[2021-04-28 19:39] LABS: HEMATOCRIT 37.6 % (37.0-47.0); HEMOGLOBIN 11.9 gm/dL (12.0-15.0); MCH 28.5 pg (26.0-34.0); MCHC 31.7 g/dL (28.0-37.0); MCV 90.1 fL (80.0-100.0); RBC 4.17 mil/uL (4.20-5.00); RDW 25.2 % (10.5-14.5); WBC 14.4 thou/uL (4.0-11.0)
[2021-04-28 19:42] LABS: HCO3 22.1 mmol/L (22.0-26.0); PCO2 49.3 mmHg (35.0-45.0); PO2 80.4 mmHg (80.0-100.0); sO2 94.2 % (92.0-98.0)
[2021-04-28 19:44] LABS: pH 7.269 (7.360-7.450)
[2021-04-28 19:46] LABS: CALCIUM 8.4 mg/dL (8.5-10.1); POTASSIUM 4.8 mmol/L (3.5-5.1)
[2021-04-28 20:23] VITALS: BP 98/58
[2021-04-28 22:55] LABS: BE(vivo) -2.8 mmol/L (-2 to +3); HCO3 21.1 mmol/L (22.0-26.0); PO2 143.7 mmHg (80.0-100.0); pH 7.411 (7.360-7.450); sO2 98.9 % (92.0-98.0)
[2021-04-28 23:52] VITALS: BP 101/66
[2021-04-29 01:58] VITALS: BP 101/66
[2021-04-29 03:30] VITALS: BP 83/53
[2021-04-29 07:30] VITALS: BP 82/45
--- NOTE | 2021-04-29 09:55 | EKG ---
[place] [address] [facility] [place] [address] ELECTROCARDIOGRAM REPORT Name: FARRAH SUAREZ Room #: 202- ADM IN M.R.#: [id number] Admission: 04/12/21 Attend Phys: Taqueria Elizabeth MD Discharge: Date of : 59 Report #: [id number] 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 : 1955 Requested By: Taqueria Elizabeth Order Number: [id number] MD: Casey Galarza Measurements Intervals [place] Rate: 70 P: [place]: QRS: 264 QRSD: 211 T: 48 QT: 517 QTc: 558 Interpretive Statements Ventricular paced rhythm No further analysis attempted due to paced rhythm Compared to ECG 04/28/2021 18:51:59 Accelerated junctional rhythm no longer present Intraventricular conduction delay no longer present Myocardial infarct finding no longer present Electronically Signed On 04-29-2021 9:54:57 MANGANESE WHEELER by Casey Galarza [email or web address] <ELECTRONICALLY SIGNED> By: Casey Galarza MD 04/29/21 0954 D: [id number] 03 Casey Galarza MD /GERARDO
--- NOTE | 2021-04-29 09:55 | EKG ---
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 Estimator: RA : 1955 Requested By: Taqueria Elizabeth Order Number: [id number] MD: Casey Galarza Measurements Intervals [place] Rate: 70 P: [place]: QRS: -32 QRSD: 208 T: 125 QT: 486 QTc: 525 Interpretive Statements Ventricular paced rhythm Lead(s) II were not used for morphology analysis Compared to ECG 04/12/2021 09:36:30 Accelerated junctional rhythm now present Intraventricular conduction delay now present Myocardial infarct finding now present Electronically Signed On 04-29-2021 9:55:17 COMPUTER SCIENTIST by Casey Galarza [email or web address] <ELECTRONICALLY SIGNED> By: Casey Galarza MD 04/29/21954 50 50 Casey Galarza MD /GERARDO
[2021-04-29 11:20] VITALS: BP 85/50
[2021-04-29 15:30] VITALS: BP 90/52
[2021-04-29 20:05] VITALS: BP 122/90
== END 2021-04-29 21:52 | DRG 193 ==
LOC: ER 09:31 → EROBS 12:43 → 2N 12:43
PROVIDERS: Emergency Medicine; Hospitalist; Internal Medicine; Nurse Practitioner; Psychiatry & Neurology Neuromuscular Medicine; Specialist; ADMIT Hospitalist; ATTEND Hospitalist
PROC: 5A09357 Assistance with Respiratory Ventilation, Less than 24 Consecutive Hours, Continuous Positive Airway Pressure (ICD-10-PCS; principal; 2021-04-12)
PROC: 5A09357 Assistance with Respiratory Ventilation, Less than 24 Consecutive Hours, Continuous Positive Airway Pressure (ICD-10-PCS; 2021-04-15)
PROC: 5A09357 Assistance with Respiratory Ventilation, Less than 24 Consecutive Hours, Continuous Positive Airway Pressure (ICD-10-PCS; 2021-04-16)
PROC: B548ZZA Ultrasonography of Superior Vena Cava, Guidance (ICD-10-PCS; 2021-04-16)
PROC: 02HV33Z Insertion of Infusion Device into Superior Vena Cava, Percutaneous Approach (ICD-10-PCS; 2021-04-16)
PROC: B5181ZA Fluoroscopy of Superior Vena Cava using Low Osmolar Contrast, Guidance (ICD-10-PCS; 2021-04-16)
PROC: 5A09357 Assistance with Respiratory Ventilation, Less than 24 Consecutive Hours, Continuous Positive Airway Pressure (ICD-10-PCS; 2021-04-17)
PROC: 5A1D70Z Performance of Urinary Filtration, Intermittent, Less than 6 Hours Per Day (ICD-10-PCS; 2021-04-17)
PROC: 5A09357 Assistance with Respiratory Ventilation, Less than 24 Consecutive Hours, Continuous Positive Airway Pressure (ICD-10-PCS; 2021-04-18)
PROC: 5A09357 Assistance with Respiratory Ventilation, Less than 24 Consecutive Hours, Continuous Positive Airway Pressure (ICD-10-PCS; 2021-04-19)
PROC: 5A1D70Z Performance of Urinary Filtration, Intermittent, Less than 6 Hours Per Day (ICD-10-PCS; 2021-04-20)
PROC: 5A09357 Assistance with Respiratory Ventilation, Less than 24 Consecutive Hours, Continuous Positive Airway Pressure (ICD-10-PCS; 2021-04-20)
PROC: 5A09357 Assistance with Respiratory Ventilation, Less than 24 Consecutive Hours, Continuous Positive Airway Pressure (ICD-10-PCS; 2021-04-21)
PROC: 5A09357 Assistance with Respiratory Ventilation, Less than 24 Consecutive Hours, Continuous Positive Airway Pressure (ICD-10-PCS; 2021-04-22)
PROC: 5A09357 Assistance with Respiratory Ventilation, Less than 24 Consecutive Hours, Continuous Positive Airway Pressure (ICD-10-PCS; 2021-04-23)
PROC: 5A1D70Z Performance of Urinary Filtration, Intermittent, Less than 6 Hours Per Day (ICD-10-PCS; 2021-04-23)
PROC: 5A09357 Assistance with Respiratory Ventilation, Less than 24 Consecutive Hours, Continuous Positive Airway Pressure (ICD-10-PCS; 2021-04-24)
PROC: 5A09357 Assistance with Respiratory Ventilation, Less than 24 Consecutive Hours, Continuous Positive Airway Pressure (ICD-10-PCS; 2021-04-25)
PROC: 5A09357 Assistance with Respiratory Ventilation, Less than 24 Consecutive Hours, Continuous Positive Airway Pressure (ICD-10-PCS; 2021-04-26)
PROC: 5A1D70Z Performance of Urinary Filtration, Intermittent, Less than 6 Hours Per Day (ICD-10-PCS; 2021-04-27)
PROC: 5A09357 Assistance with Respiratory Ventilation, Less than 24 Consecutive Hours, Continuous Positive Airway Pressure (ICD-10-PCS; 2021-04-28)
PROC: 5A12012 Performance of Cardiac Output, Single, Manual (ICD-10-PCS; 2021-04-29)
PROC: 5A09357 Assistance with Respiratory Ventilation, Less than 24 Consecutive Hours, Continuous Positive Airway Pressure (ICD-10-PCS; 2021-04-29)
DX: J18.9 Pneumonia, unspecified organism (principal); J96.01 Acute respiratory failure with hypoxia; I50.33 Acute on chronic diastolic (congestive) heart failure; A40.1 Sepsis due to streptococcus, group B; E43 Unspecified severe protein-calorie malnutrition; G93.41 Metabolic encephalopathy; R65.20 Severe sepsis without septic shock; N17.9 Acute kidney failure, unspecified; E87.1 Hypo-osmolality and hyponatremia; I38 Endocarditis, valve unspecified; I42.9 Cardiomyopathy, unspecified; I31.3 Pericardial effusion (noninflammatory); D61.818 Other pancytopenia; Z68.42 Body mass index [BMI] 45.0-49.9, adult; I13.0 Hypertensive heart and chronic kidney disease with heart failure and stage 1 through stage 4 chronic kidney disease, or unspecified chronic kidney disease; Z20.822 Contact with and (suspected) exposure to COVID-19; E11.65 Type 2 diabetes mellitus with hyperglycemia; N18.9 Chronic kidney disease, unspecified; I49.5 Sick sinus syndrome; E66.01 Morbid (severe) obesity due to excess calories; G47.33 Obstructive sleep apnea (adult) (pediatric); I48.0 Paroxysmal atrial fibrillation; D50.9 Iron deficiency anemia, unspecified; I35.0 Nonrheumatic aortic (valve) stenosis; I27.20 Pulmonary hypertension, unspecified; R41.0 Disorientation, unspecified; Z99.2 Dependence on renal dialysis; Z88.1 Allergy status to other antibiotic agents; Z88.0 Allergy status to penicillin; Z82.49 Family history of ischemic heart disease and other diseases of the circulatory system; I46.9 Cardiac arrest, cause unspecified; E11.22 Type 2 diabetes mellitus with diabetic chronic kidney disease
CPT/HCPCS: 10081; 27000; 32100